=== PATIENT | male | born 1950 | race Caucasian/White ===

== ENCOUNTER 2016-04-11 23:10 | Emergency (ER) | payer SELFPAY ==
[~2016-04-11] VITALS: Ht 182.9 cm; Wt 99.8 kg
[~2016-04-11 23:10] MED LIST: ASPI-807 PO; VALE100C PO
[2016-04-12] MEDS ORDERED: PIPERACILLIN /TAZOBACTAM 3.375 G VIAL IV ONE (00:25)
[2016-04-12] MEDS ORDERED: ONDANSETRON HCL/PF 4 MG/2 ML VIAL ONE (00:25)
[2016-04-12] MEDS ORDERED: IV SET PRIMARY 1 EA INFUS.SET MC ONE (00:25)
[2016-04-12] MEDS ORDERED: IV NS 0.9% 500 ML IV ONE (00:25)
[2016-04-12] MEDS ORDERED: HYDROMORPHONE 1 MG/1 ML DISP.SYRIN ONE (00:25)
[2016-04-12] MEDS ORDERED: IV D5W 50 ML IV ONE (00:25)
[2016-04-12] MEDS ORDERED: SECONDARY IV SET 1 EA INFUS.SET MC ONE (00:26)
[2016-04-12] MEDS ORDERED: ONDANSETRON HCL/PF 4 MG/2 ML VIAL IVP ONE (00:30)
[2016-04-12] MEDS ORDERED: IV NS 0.9% 500 ML BAG IV ONE (00:30)
[2016-04-12] MEDS ORDERED: HYDROMORPHONE INJ 2 MG/ML DISP.SYRIN IV ONE (00:30)
[2016-04-12] MEDS ORDERED: PIPERACILLIN /TAZOBACTAM 3.375 G in IV D5W 50 ML IV ONE (00:30)
[2016-04-12 00:46] LABS: BASOPHILS % (AUTO) 0.3 % (0.0-2.0); DIFF TOTAL % 100 %; EOSINOPHILS % (AUTO) 1.3 % (0.0-6.0); HEMATOCRIT 39 % (39-51); HEMOGLOBIN 13.6 g/dL (13.5-17.5); LYMPHOCYTES # (AUTO) 0.9 /CMM (0.8-4.8); MEAN CORPUSCULAR HEMOGLOBIN 32 PG (26.0-33.0); MEAN CORPUSCULAR HGB CONC 34 g/dl (31.0-36.0); MEAN CORPUSCULAR VOLUME 92 fL (80-96); MONOCYTES # (AUTO) 0.4 /CMM (0.1-1.30); MONOCYTES % (AUTO) 9.8 % (2.0-12.0); NEUTROPHILS # (AUTO) 2.4 /CMM (1.8-8.9); NEUTROPHILS % (AUTO) 64.6 % (43.0-81.0); PLATELET COUNT (AUTO) 156 /CMM (150-450); RED BLOOD CELL COUNT(AUTO) 4.29 MIL/uL (4.5-6.0); WHITE BLOOD COUNT (AUTO) 3.7 K/uL (4.3-11.0)
[2016-04-12 01:03] LABS: CALCIUM, SERUM 8.2 mg/dL (8.5-10.1); CREATININE 1.1 mg/dL (0.6-1.3); POTASSIUM 3.5 mmol/L (3.5-5.1)
[2016-04-12 01:07] LABS: ALBUMIN 3.2 g/dL (3.4-5.0); BILIRUBIN,DIRECT 0.1 mg/dL (0.0-0.2); BILIRUBIN,TOTAL 0.4 mg/dL (0.2-1.0); INDIRECT BILIRUBIN 0.3 mg/dL (0.0-1.1); TOTAL PROTEIN, SERUM 7.1 g/dL (6.4-8.2)
[2016-04-12] MEDS ORDERED: IOHEXOL-300 100 ML VIAL IV ONE (01:15)
[2016-04-12] MEDS ORDERED: IV NS 0.9% 250 ML IV ONE (01:15)
[2016-04-12] MEDS ORDERED: CT SWABBABLE VALVE TRANS SET 1 EA INFUS.SET MC ONE (01:15)
[2016-04-12 02:15] VITALS: BP 119/68
== END 2016-04-12 02:15 | disposition home or self-care (01) ==
LOC: ER 23:16
DX: L03.311 Cellulitis of abdominal wall (principal); Z98.890 Other specified postprocedural states
CPT/HCPCS: 36415; 80048-TC; 80076-TC; 83690-TC; 85025-TC; A4606; J1170; J2405; J2543; J7040; J7050; J7060; Q9967; Z7610

== ENCOUNTER 2024-02-28 17:52 | Emergency (ER) | payer OTHER ==
[~2024-02-28] VITALS: Ht 167.6 cm; Wt 77.1 kg
[2024-02-28 18:18] VITALS: BP 138/72; TEMP 98.8
[2024-02-28] MEDS ORDERED: predniSONE 20 MG TABLET ONE (20:25)
[2024-02-28] MEDS ORDERED: diphenhydrAMINE HCL ELIX 25 MG/10 ML UDC ONE (20:25)
[2024-02-28] MEDS ORDERED: FAMOTIDINE (20 MG) 20 MG TABLET ONE (20:25)
[2024-02-28 20:30] VITALS: O2SAT 97
[2024-02-28] MEDS: predniSONE 50 MG TABLET PO ONE (20:30)
[2024-02-28] MEDS: FAMOTIDINE (20 MG) 20 MG TABLET PO ONE (20:30)
[2024-02-28] MEDS: DIPHENHYDRAMINE HCL 12.5 MG/5 ML UDC PO ONE (20:30)
[2024-02-28] MEDS ORDERED: PRED50TA PO (20:40)
== END 2024-02-28 20:58 | disposition home or self-care (01) ==
LOC: ER 18:24
DX: R21 Rash and other nonspecific skin eruption (principal)
CPT/HCPCS: 99284; Q0163 ×2; J7512

== ENCOUNTER 2024-03-20 02:56 | Emergency (ER) | payer OTHER ==
[~2024-03-20] VITALS: Ht 172.7 cm; Wt 77.1 kg
[~2024-03-20 02:56] MED LIST changes: +PRED50TA PO
[2024-03-20] MEDS ORDERED: cetrizine 10 MG TABLET ONE (04:47)
[2024-03-20] MEDS ORDERED: diphenhydrAMINE HCL 25 MG CAPSULE ONE (04:48)
[2024-03-20] MEDS ORDERED: FAMOTIDINE (20 MG) 20 MG TABLET ONE (04:48)
[2024-03-20] MEDS ORDERED: CETI-90 PO (04:50)
[2024-03-20] MEDS ORDERED: FAMO-144 PO (04:50)
[2024-03-20] MEDS: FAMOTIDINE (20 MG) 20 MG TABLET PO ONE (04:54)
[2024-03-20] MEDS: cetrizine 10 MG TABLET PO ONE (04:54)
[2024-03-20] MEDS: DIPHENHYDRAMINE HCL 12.5 MG/5 ML UDC PO ONE (04:54)
[2024-03-20] MEDS ORDERED: predniSONE 20 MG TABLET ONE (04:58)
[2024-03-20] MEDS: predniSONE 50 MG TABLET PO ONE (05:00)
[2024-03-20 05:05] VITALS: BP 141/73; TEMP 97.8; O2SAT 98
== END 2024-03-20 05:05 | disposition home or self-care (01) ==
LOC: ER 02:59
DX: R21 Rash and other nonspecific skin eruption (principal); Z79.52 Long term (current) use of systemic steroids; Z79.82 Long term (current) use of aspirin; Z87.19 Personal history of other diseases of the digestive system
CPT/HCPCS: 99284; Q0163 ×2; J7512

== ENCOUNTER 2024-06-28 03:43 | Emergency (ER) | payer OTHER ==
[~2024-06-28] VITALS: Ht 167.6 cm; Wt 99.8 kg
[~2024-06-28 03:43] MED LIST changes: +CETI-90 PO; +FAMO-144 PO
[2024-06-28] MEDS: ACETAMINOPHEN ES 500 MG TABLET PO ONE (05:33)
[2024-06-28] MEDS: KETOROLAC TROMETHAMINE 15 MG/ML VIAL IM ONE (05:33)
[2024-06-28] MEDS: LIDOCAINE 5% (PATCH) 1 EA PATCH TP SCH (05:34)
[2024-06-28] MEDS ORDERED: ACET-2030 PO (05:51)
[2024-06-28] MEDS ORDERED: LIDO30AD10 TP (05:51)
[2024-06-28 06:28] VITALS: BP 144/89; TEMP 98; O2SAT 95
== END 2024-06-28 06:28 | disposition home or self-care (01) ==
LOC: ER 03:46
DX: M25.511 Pain in right shoulder (principal); M54.2 Cervicalgia; M79.18 Myalgia, other site; R07.81 Pleurodynia; E11.9 Type 2 diabetes mellitus without complications; I10 Essential (primary) hypertension; Z79.52 Long term (current) use of systemic steroids; Z79.82 Long term (current) use of aspirin; Z87.19 Personal history of other diseases of the digestive system; V43.52XA Car driver injured in collision with other type car in traffic accident, initial encounter; Y93.89 Activity, other specified; Y92.488 Other paved roadways as the place of occurrence of the external cause; Y99.8 Other external cause status
CPT/HCPCS: 99285; 72125; 96372; 73030; 71250; 70450; J1885